=== PATIENT | male | born 1975 | race Caucasian/White ===

== ENCOUNTER 2024-08-11 11:38 | Inpatient (IN) | payer BC ==
[2024-08-11 12:15] LABS: BASOPHILS ABSOLUTE AUTO 0.06 K/uL (0.00-0.20); BASOPHILS PERCENT AUTO 0.4 % (0.0-1.0); HEMATOCRIT 45.6 % (42.0-52.0); HEMOGLOBIN 15.9 g/dL (14.0-18.0); IMMATURE GRAN ABSOLUTE AUTO 0.08 K/uL (0.00-0.05); IMMATURE GRAN PERCENT AUTO 0.5 % (0.0-0.4); LYMPHOCYTES ABSOLUTE AUTO 1.19 K/uL (1.00-4.80); LYMPHOCYTES PERCENT AUTO 7.4 % (24.0-44.0); MEAN CORPUSCULAR HEMOGLOBIN 28.4 pg (28.0-32.0); MEAN CORPUSCULAR HGB CONC 34.9 g/dL (32.0-36.0); MEAN CORPUSCULAR VOLUME 81.6 fL (83.0-99.0); MONOCYTES ABSOLUTE AUTO 0.96 K/uL (0.00-0.80); MONOCYTES PERCENT AUTO 5.9 % (0.0-8.0); NEUTROPHILS PERCENT AUTO 85.8 % (41.0-71.0); PLATELET COUNT,PLT 291 K/uL (150-400); RED BLOOD CELL COUNT 5.59 M/uL (4.52-5.90); WHITE BLOOD CELL COUNT,WBC 16.19 K/uL (3.9-11.3)
[2024-08-11] MEDS ORDERED: Sodium Chloride 0.9% 2.5 ML Syringe FLUSH PRN (12:16)
[2024-08-11] MEDS ORDERED: Sodium Chloride 0.9% 10 ML Syringe FLUSH PRN (12:16)
[2024-08-11 12:43] LABS: A/G RATIO 0.8 (0.9-1.6); ALANINE AMINOTRANSFERASE,ALT 68 IU/L (14-63); ALBUMIN 3.3 g/dL (3.4-5.0); ALKALINE PHOSPHATASE 134 U/L (46-116); ASPARTATE AMNIOTRANSFERASE,AST 27 IU/L (15-37); BILIRUBIN TOTAL 1.9 mg/dL (0.2-1.0); BLOOD UREA NITROGEN,BUN 15 mg/dL (7.0-18.0); CALCIUM 9.4 mg/dL (8.5-10.1); CARBON DIOXIDE,CO2 26.4 mmol/L (21.0-32.0); CHLORIDE,CL 100 mmol/L (98-107); CREATININE 1.6 mg/dL (0.8-1.3); GLUCOSE RANDOM 142 mg/dL (74-106); LIPASE 44 U/L (16-77); POTASSIUM,K 4.2 mmol/L (3.5-5.1); PROTEIN TOTAL,TP 7.7 g/dL (6.4-8.2); SODIUM,NA 137 mmol/L (136-148)
[2024-08-11 12:48] LABS: ESTIMATED GFR 53 mL/min (>60)
[2024-08-11] MEDS: Ketorolac 30 MG/ML SDV IVPUSH ONE (13:16)
[2024-08-11 14:03] LABS: COLOR,URINE ORANGE; GLUCOSE,URINE NEGATIVE (NEGATIVE); KETONES,URINE NEGATIVE (NEGATIVE); LEUKOCYTE ESTERASE,URINE TRACE (NEGATIVE); NITRITE,URINE POSITIVE (NEGATIVE); OCCULT BLOOD,URINE NEGATIVE (NEGATIVE); PROTEIN,URINE NEGATIVE (NEGATIVE)
[2024-08-11 14:04] LABS: APPEARANCE,URINE HAZY; BILIRUBIN,URINE SMALL (NEGATIVE)
[2024-08-11 14:16] LABS: RBC,URINE 0-2 (0-2/HPF)
[2024-08-11 14:17] LABS: BACTERIA,URINE FEW (NEGATIVE); EPITHELIAL CELLS,URINE FEW (NONE-FEW); HYALINE CASTS,URINE 0-3 (0-2/LPF); MUCUS,URINE LIGHT (NONE-MOD)
[2024-08-11] MEDS: Iopamidol 755 MG/ML 500 ML Multipack Bottle IVPUSH STA (14:17)
[2024-08-11] MEDS: Piperacillin/Tazobactam 4.5 GM in Sodium Chloride 0.9% 100 ML IV ONE (16:09)
[2024-08-11] MEDS ORDERED: Morphine 2 MG/ML SYRINGE IVPUSH PRN (18:03)
[2024-08-11] MEDS ORDERED: Ondansetron 4 MG/2 ML SDV IVPUSH PRN (18:03)
[2024-08-11] MEDS ORDERED: Naloxone 0.4 MG/ML SDV IVPUSH PRN (18:03)
[2024-08-11] MEDS ORDERED: Piperacillin/Tazobactam 4.5 GM in Sodium Chloride 0.9% 100 ML IV SCH (18:15)
[2024-08-11] MEDS: Sodium Chloride 0.9% 1,000 ML IV SCH (19:47)
[2024-08-11] MEDS: Acetaminophen 325 MG Tab PO PRN (19:57)
[2024-08-11] MEDS ORDERED: 50% Dextrose in Water 50 ML Syringe IVPUSH PRN (23:28)
[2024-08-11] MEDS ORDERED: Glucagon,Human Recombinant 1 MG Vial IM PRN (23:28)
[2024-08-12] MEDS: Insulin Aspart 100 Units/ML 3 ML Pen SUBCUT SCH (00:27)
[2024-08-12] MEDS: Piperacillin/Tazobactam 4.5 GM in Sodium Chloride 0.9% 100 ML IV SCH ×2 (00:31→17:30)
[2024-08-12] MEDS: Acetaminophen/HYDROcodone 325-5 MG Tab PO PRN (03:39)
[2024-08-12 05:47] LABS: BASOPHILS ABSOLUTE AUTO 0.05 K/uL (0.00-0.20); BASOPHILS PERCENT AUTO 0.4 % (0.0-1.0); EOSINOPHILS ABSOLUTE AUTO 0.03 K/uL (0.00-0.45); EOSINOPHILS PERCENT AUTO 0.2 % (0.0-6.0); HEMATOCRIT 40.2 % (42.0-52.0); IMMATURE GRAN PERCENT AUTO 0.7 % (0.0-0.4); LYMPHOCYTES ABSOLUTE AUTO 1.21 K/uL (1.00-4.80); LYMPHOCYTES PERCENT AUTO 8.6 % (24.0-44.0); MEAN CORPUSCULAR HEMOGLOBIN 28.4 pg (28.0-32.0); MEAN CORPUSCULAR HGB CONC 34.8 g/dL (32.0-36.0); MEAN CORPUSCULAR VOLUME 81.5 fL (83.0-99.0); MEAN PLATELET VOLUME 8.1 fL (9.4-12.4); MONOCYTES ABSOLUTE AUTO 1.04 K/uL (0.00-0.80); MONOCYTES PERCENT AUTO 7.3 % (0.0-8.0); NEUTROPHILS ABSOLUTE AUTO 11.72 K/uL (1.80-7.70); NEUTROPHILS PERCENT AUTO 82.8 % (41.0-71.0); PLATELET COUNT,PLT 259 K/uL (150-400); RED BLOOD CELL COUNT 4.93 M/uL (4.52-5.90); WHITE BLOOD CELL COUNT,WBC 14.15 K/uL (3.9-11.3)
[2024-08-12] MEDS: Acetaminophen 1,000 MG in Premix Bag 1 BAG IV PRN (06:04)
[2024-08-12 06:08] LABS: CALCIUM 8.5 mg/dL (8.5-10.1); CARBON DIOXIDE,CO2 25.6 mmol/L (21.0-32.0); CREATININE 1.3 mg/dL (0.8-1.3); EST CRCL DRUG DOSING (CG) 82.55 mL/min; POTASSIUM,K 3.9 mmol/L (3.5-5.1)
[2024-08-12] MEDS ORDERED: Lidocaine 2% 5 ML SDV ONE (11:33)
[2024-08-12] MEDS ORDERED: Propofol 200 MG/20 ML SDV ONE (11:35)
[2024-08-12] MEDS ORDERED: Bupivacaine 0.5% 30 ML SDV ONE (11:50)
[2024-08-12] MEDS ORDERED: Bupivacaine 0.25% 30 ML SDV ONE (11:50)
[2024-08-12] MEDS ORDERED: dexmedeTOMIDine HCl 200 MCG/2 ML SDV ONE (12:25)
[2024-08-12] MEDS ORDERED: fentaNYL 100 MCG/2 ML SDV ONE (12:27)
[2024-08-12] MEDS ORDERED: Ketamine HCL/NACL, ISO-OSM 50 MG/5 ML Syringe ONE (12:27)
[2024-08-12] MEDS ORDERED: Rocuronium Bromide 50 MG/5 ML Syringe ONE ×2 (12:27→14:01)
[2024-08-12] MEDS ORDERED: Ropivacaine 0.5% 5 MG/ML 30 ML SDV ONE (12:28)
[2024-08-12] MEDS ORDERED: Dexamethasone 4 MG/ML 5 ML MDV ONE (13:32)
[2024-08-12] MEDS ORDERED: Ondansetron 4 MG/2 ML SDV ONE (13:32)
[2024-08-12] MEDS ORDERED: HYDROmorphone 2 MG/ML Syringe ONE (14:02)
[2024-08-12] MEDS ORDERED: Sugammadex Sodium 200 MG/2 ML VIAL IV ONE (15:57)
[2024-08-12] MEDS ORDERED: Phenylephrine HCl In 0.9% NaCl 1 MG/10 ML Syringe IVPUSH PRN (16:52)
[2024-08-12] MEDS ORDERED: Ondansetron 4 MG/2 ML SDV IVPUSH PRN (16:52)
[2024-08-12] MEDS ORDERED: fentaNYL 50 MCG/ML SDV IVPUSH PRN (16:52)
[2024-08-12] MEDS ORDERED: Metoclopramide 10 MG/2 ML SDV IVPUSH PRN (16:52)
[2024-08-12] MEDS ORDERED: Albuterol 0.083% 2.5 MG/3 ML Neb Soln NEB PRN (16:52)
[2024-08-12] MEDS ORDERED: Naloxone 0.4 MG/ML SDV IVPUSH PRN (16:52)
[2024-08-12] MEDS ORDERED: Morphine 2 MG/ML SYRINGE IVPUSH PRN (16:52)
[2024-08-12] MEDS: HYDROmorphone 1 MG/ML Syringe IVPUSH PRN (16:57)
[2024-08-12] MEDS: Sodium Chloride 0.9% 1,000 ML IV SCH (20:28)
[2024-08-13 05:50] LABS: BASOPHILS ABSOLUTE AUTO 0.02 K/uL (0.00-0.20); BASOPHILS PERCENT AUTO 0.1 % (0.0-1.0); HEMATOCRIT 42.2 % (42.0-52.0); IMMATURE GRAN ABSOLUTE AUTO 0.06 K/uL (0.00-0.05); IMMATURE GRAN PERCENT AUTO 0.4 % (0.0-0.4); LYMPHOCYTES ABSOLUTE AUTO 0.65 K/uL (1.00-4.80); LYMPHOCYTES PERCENT AUTO 4.7 % (24.0-44.0); MEAN CORPUSCULAR HEMOGLOBIN 27.8 pg (28.0-32.0); MEAN CORPUSCULAR HGB CONC 33.2 g/dL (32.0-36.0); MEAN CORPUSCULAR VOLUME 83.7 fL (83.0-99.0); MEAN PLATELET VOLUME 8.5 fL (9.4-12.4); MONOCYTES ABSOLUTE AUTO 0.58 K/uL (0.00-0.80); MONOCYTES PERCENT AUTO 4.2 % (0.0-8.0); NEUTROPHILS ABSOLUTE AUTO 12.44 K/uL (1.80-7.70); NEUTROPHILS PERCENT AUTO 90.6 % (41.0-71.0); PLATELET COUNT,PLT 270 K/uL (150-400); RED BLOOD CELL COUNT 5.04 M/uL (4.52-5.90); WHITE BLOOD CELL COUNT,WBC 13.75 K/uL (3.9-11.3)
[2024-08-13 06:17] LABS: A/G RATIO 0.6 (0.9-1.6); ALBUMIN 2.4 g/dL (3.4-5.0); BILIRUBIN TOTAL 0.9 mg/dL (0.2-1.0); CALCIUM 8.4 mg/dL (8.5-10.1); CARBON DIOXIDE,CO2 26.8 mmol/L (21.0-32.0); CREATININE 1.2 mg/dL (0.8-1.3); EST CRCL DRUG DOSING (CG) 89.43 mL/min; POTASSIUM,K 4.8 mmol/L (3.5-5.1); PROTEIN TOTAL,TP 6.5 g/dL (6.4-8.2)
[2024-08-13] MEDS: ALPRAZolam 0.5 MG Tab PO SCH (08:07)
[2024-08-13] MEDS: Pantoprazole 40 MG Tab.CR PO SCH (08:07)
[2024-08-13] MEDS: Insulin Aspart 100 Units/ML 3 ML Pen SUBCUT SCH (08:12)
[2024-08-13] MEDS ORDERED: Aloe Vera/Sodium Chloride Gel 14.1 GM Tube NAS PRN (10:21)
[2024-08-13] MEDS ORDERED: Sodium Chloride 0.9% 10 ML Syringe FLUSH PRN (14:53)
[2024-08-13] MEDS ORDERED: Sodium Chloride 0.9% 2.5 ML Syringe FLUSH PRN (14:53)
[2024-08-14 07:09] LABS: A/G RATIO 0.6 (0.9-1.6); ALBUMIN 2.4 g/dL (3.4-5.0); BILIRUBIN TOTAL 0.6 mg/dL (0.2-1.0); CALCIUM 8.4 mg/dL (8.5-10.1); CARBON DIOXIDE,CO2 27.5 mmol/L (21.0-32.0); CREATININE 1.1 mg/dL (0.8-1.3); EST CRCL DRUG DOSING (CG) 97.56 mL/min; POTASSIUM,K 4.3 mmol/L (3.5-5.1); PROTEIN TOTAL,TP 6.3 g/dL (6.4-8.2)
[2024-08-14 09:52] LABS: BASOPHILS ABSOLUTE AUTO 0.04 K/uL (0.00-0.20); BASOPHILS PERCENT AUTO 0.3 % (0.0-1.0); EOSINOPHILS ABSOLUTE AUTO 0.03 K/uL (0.00-0.45); EOSINOPHILS PERCENT AUTO 0.2 % (0.0-6.0); HEMATOCRIT 40.6 % (42.0-52.0); HEMOGLOBIN 13.8 g/dL (14.0-18.0); IMMATURE GRAN ABSOLUTE AUTO 0.06 K/uL (0.00-0.05); IMMATURE GRAN PERCENT AUTO 0.5 % (0.0-0.4); LYMPHOCYTES ABSOLUTE AUTO 1.78 K/uL (1.00-4.80); LYMPHOCYTES PERCENT AUTO 14.5 % (24.0-44.0); MEAN CORPUSCULAR HEMOGLOBIN 28.3 pg (28.0-32.0); MEAN CORPUSCULAR VOLUME 83.2 fL (83.0-99.0); MEAN PLATELET VOLUME 8.8 fL (9.4-12.4); MONOCYTES ABSOLUTE AUTO 0.83 K/uL (0.00-0.80); MONOCYTES PERCENT AUTO 6.8 % (0.0-8.0); NEUTROPHILS ABSOLUTE AUTO 9.52 K/uL (1.80-7.70); NEUTROPHILS PERCENT AUTO 77.7 % (41.0-71.0); PLATELET COUNT,PLT 345 K/uL (150-400); RED BLOOD CELL COUNT 4.88 M/uL (4.52-5.90); WHITE BLOOD CELL COUNT,WBC 12.26 K/uL (3.9-11.3)
== END 2024-08-14 17:25 | disposition home or self-care (01) | DRG 263 ==
LOC: MW.ED 11:38 → UNDOADMOB 17:44 → MW.MS 17:44 → OBSVTOIN 08-13 14:54 → INTOOBSV 08-13 14:54
PROVIDERS: ADMIT Surgery; ATTEND Surgery
PROC: 0FT44ZZ Resection of Gallbladder, Percutaneous Endoscopic Approach (ICD-10-PCS; principal; 2024-08-13)
DX: K80.00 Calculus of gallbladder with acute cholecystitis without obstruction (principal); R65.10 Systemic inflammatory response syndrome (SIRS) of non-infectious origin without acute organ dysfunction; E11.9 Type 2 diabetes mellitus without complications; K21.9 Gastro-esophageal reflux disease without esophagitis; F90.9 Attention-deficit hyperactivity disorder, unspecified type; F41.9 Anxiety disorder, unspecified; F17.210 Nicotine dependence, cigarettes, uncomplicated; I25.2 Old myocardial infarction; Z79.84 Long term (current) use of oral hypoglycemic drugs; Z79.899 Other long term (current) drug therapy
CPT/HCPCS: 00790; 36415; 74177; 74177-26; 74181; 74181-26; 76705; 76705-26; 80048; 80053; 81001; 82947; 83690; 84484; 85025; 87070; 87075; 87077; 87186; 87205; 93005; 93010; 96361; 96365; 96366; 96375; 96376; 99285; 99285-25; A9270-GY; G0378; J0131; J0665; J1100; J1171; J1815-GY; J1885; J2405; J2543; J2704; J2795; J3010; J3490; J7030; Q9967